=== PATIENT | male | born 1960 | race Caucasian/White ===

== ENCOUNTER → 2024-02-23 14:01 | Outpatient (REF) | payer MEDICARE, SELFPAY | LOC: HWRAD 14:01 | PROVIDERS: ATTENDING PHYSICIAN Family Medicine | DX: R19.00 Intra-abdominal and pelvic swelling, mass and lump, unspecified site (principal) | CPT/HCPCS: 76604 ==

== ENCOUNTER → 2024-03-15 14:27 | Outpatient (REF) | payer MEDICARE, SELFPAY | LOC: HWRAD 14:27 | PROVIDERS: ATTENDING PHYSICIAN Family Medicine | DX: R29.898 Other symptoms and signs involving the musculoskeletal system (principal) | CPT/HCPCS: 71120 ==

== ENCOUNTER 2024-04-03 09:43 | Emergency (ER) | payer MEDICARE, SELFPAY ==
[2024-04-03 09:51] VITALS: BP 139/80
[2024-04-03 10:22] LABS: Urine Albumin Negative (Neg - Trace); Urine Bilirubin Negative (Negative); Urine Character Clear (Clear); Urine Color Yellow; Urine Glucose 2+ (Negative); Urine Ketone Negative (Negative); Urine Leukocyte Negative (Negative); Urine Nitrite Negative (Negative); Urine Occult Blood 4+ (Negative); Urine Urobilinogen Negative (Neg - 1+)
[2024-04-03 10:35] LABS: Urine Bacteria Few (Negative); Urine Red Blood Cell 16-20 /HPF (0-2)
--- NOTE | 2024-04-03 10:35 | ED.GENMED ---
History of Present Illness
General
Chief Complaint: Flank Pain
Time Seen by Provider: 04/03/24 10:09
History of Present Illness
History of Present Illness:
63-year-old male with history of CAD status post CABG, hypertension, diabetes presenting to the emergency department for right-sided flank pain with radiation to the right lower quadrant. Patient notes symptoms started acutely yesterday morning.
He woke up with right flank pain and when he urinated, had hematuria. Pain has since progressed to the right lower quadrant, with urgency and hesitancy. Hematuria has overall improved. However, pain is still persistent. Notes history of a kidney
stone about 20 years ago and pain feels very similar. He was able to pass the kidney stone at that time. He denies dysuria or fever. He denies chest pain or difficulty breathing. He denies any significant abdominal surgeries
Past History
Past History
ED Past Medical History: HTN, Hypercholesterolemia, NIDDM and Other (OA)
Social History
Tobacco: Non-smoker
Phy Exam
Physical Exam
Physical Exam:
General: Well-appearing, no clinical signs of dehydration, nontoxic and in no acute distress
HEENT: protecting airway
Neck: appears supple
CV: Normal heart rate, regular rhythm, no evidence of cyanosis
Resp: No accessory muscle use, no increased work of breathing, lungs clear to auscultation bilaterally
Abd: Soft and non-distended, no tenderness to palpation, normal bowel sounds. No CVA tenderness
Extremities: No deformities, no swelling, no erythema, pulses and sensation intact
Neuro: alert, no focal neurologic deficit
: deferred
Rectal: deferred
Psych: Normal affect
Skin: Intact
Course
Orders/Labs/Results
Orders:
Orders
04/03/24 10:11
Urinalysis Reflex To Culture Urgent
Date Specimen was Collected: 04/03/24
Time Specimen was Collected: 10:08
Urine Microscopic Reflex Cult Urgent
04/03/24 10:32
0.9% Sodium Chloride 1000 ml [Nss] 1,000 ml IV BOLUS
Ketorolac [Toradol] 15 mg IV NOW STA
04/03/24 10:33
CT Abd/pel Without Iv Or Oral Urgent
Comment:
Reason For Exam: R-flank to RLQ pain, kidney stone
04/03/24 10:36
Complete Blood Count/With Diff Urgent
Comprehensive Metabolic Panel Urgent
Abnormal Lab Results
04/03/24 04/03/24
10:11 10:36
RBC 4.12 L 10^6/uL
(4.70-6.10)
Hgb 12.4 L g/dL
(13.0-18.0)
Hct 34.0 L %
(39.0-52.0)
Immature Gran % 0.6 H %
(0-0.5)
Lymphocytes % 18.6 L %
(20.5-51.1)
BUN 22 H mg/dl
(9-20)
Glucose 171 H mg/dl
(70-99)
Ur Occult Blood Reflex 4+ A
(Negative)
Urine RBC 16-20 A /HPF
(0-2)
Urine Bacteria (Reflex) Few A
(Negative)
Urine Glucose 2+ A
(Negative)
04/03/24 10:36
04/03/24 10:36
Vital Signs
Initial and Last Documented VS:
Initial Vital Signs
Temp Pulse Resp BP Pulse Ox
98.4 F 80 17 139/80 99
04/03/24 09:51 04/03/24 09:51 04/03/24 09:51 04/03/24 09:51 04/03/24 09:51
Last Documented Vital Signs
Temp Pulse Resp BP Pulse Ox
98.4 F 80 17 139/80 99
04/03/24 09:51 04/03/24 09:51 04/03/24 09:51 04/03/24 09:51 04/03/24 09:51
MDM/Problems Addressed
MDM/Problems Addressed:
63-year-old male with history of CAD status post CABG, hypertension, diabetes presenting with 2 days of right flank pain with radiation to right lower quadrant. Vital signs are normal.
On exam, patient nontoxic, no acute distress, slightly uncomfortable secondary to pain. Overall benign examination without tenderness to the abdomen, no CVA tenderness. Symptom presentation however seems most consistent with
nephrolithiasis/ureterolithiasis, particularly given history of similar episode in the past. For this reason will obtain laboratory analysis and CT imaging. Will treat patient with IV fluids and Toradol and reassess for improvement.
11:45 -patient's pain is much improved after Toradol. Labs are unremarkable without leukocytosis. Normal renal function. No signs of urinary tract infection. CT does show a 2 mm stone with mild hydro-, at UVJ. Given size, suspect patient will
pass the stone on his own. No concern for infected stone at this time. Feel patient can be managed appropriately at home with outpatient urology follow-up. Will prescribe pain medication. Advised ibuprofen for breakthrough pain. Return
precautions discussed and patient standing.
*Critical Care Note
Total Time (30-74mins, 75-104mins- exclusive of procedures): Not Applicable
ED Attending Note
-
Portions of this chart may have been created with voice recognition software.� Occasional wrong word or��sound alike� substitutions may have occurred due to the inherent limitations of voice recognition software.
Discharge Plan
Departure
Prescriptions:
No Action
multivitamin Tablet
1 tab PO DAILY
glipizide 10 mg Tablet Extended Release 24hr
20 mg PO DAILY
lisinopril 20 mg Tablet
20 mg PO DAILY
Hold Instructions: until seen by cardiology
Rx Instructions:
Never took Nitroglycerin
metformin 1,000 mg Tablet
1,000 mg PO BID
nitroglycerin 0.4 mg Tablet, Sublingual
0.4 mg SUBLINGUAL Q5-15M PRN (Reason: chest pain)
fenofibrate 160 mg Tablet
160 mg PO DAILY
amlodipine 2.5 mg Tablet
2.5 mg PO DAILY
aspirin 81 mg Tablet,Delayed Release (Dr/Ec)
81 mg PO DAILY
atorvastatin 40 mg tablet
40 mg PO DAILY
(DME) Contour Next Test Strips Strip
Qty: 60 0RF
Rx Instructions:
Pt testing twice a day
(DME) lancets [Microlet Lancet] Misc
Qty: 60 0RF
Rx Instructions:
Pt testing 2 times a day
acetaminophen 325 mg Tablet
650 mg PO Q4HPRN PRN (Reason: mild pain,headache,temp >101F ) Qty: 0 0RF
clopidogrel 75 mg Tablet
75 mg PO DAILY Qty: 30 1RF
aspirin 81 mg Tablet,Chewable
81 mg PO DAILY Qty: 0 0RF
Farxiga 10 mg Tablet
10 mg PO DAILY Qty: 30 2RF
amiodarone [Pacerone] 200 mg Tablet
200 mg PO TID Qty: 60 0RF
Rx Instructions:
take one tablet three times a day for one week, then take one tablet twice a day until seen by cardiology
metoprolol succinate 25 mg Tablet Extended Release 24 Hr
75 mg PO DAILY Qty: 90 2RF
hydrocodone-acetaminophen 5-325 mg tablet
1 tab PO Q6H PRN (Reason: Pain) Qty: 20 0RF
Rx Instructions:
do not take tylenol with this medication, you may take one or the other
Referrals:
Farhad Spears DO [Family Provider] -
Interventions
Interventions:
*Risk Screen - Suicide Last Done: 04/03/24 11:44
*Neglect/Abuse Screening Last Done: 04/03/24 11:44
EJ-Kweqdp-Goigsmetzo Assessment Last Done: 04/03/24 11:43
ED-Male Genitourinary Assessment Last Done: 04/03/24 11:43
Discharge Date and Time
Print Language: ROMANSH
[2024-04-03 10:48] LABS: % Basophils 0.6 % (0-2); % Eosinophils 1.4 % (0-6); % Immature Granulocytes 0.6 % (0-0.5); % Lymphocytes 18.6 % (20.5-51.1); % Monocytes 6.6 % (1.7-9.3); % Neutrophils 72.2 % (42.2-75.2); Absolute Eosinophils 0.1 10^3/uL (0-0.7); Absolute Lymphocytes 1.2 10^3/uL (1.2-3.4); Absolute Monocytes 0.4 10^3/uL (0.1-0.6); Absolute Neutrophils 4.8 10^3/uL (1.4-6.5); Hemoglobin 12.4 g/dL (13.0-18.0); Mean Corp Hgb Conc. 36.5 g/dL (33.0-37.0); Mean Corpuscular Hgb 30.1 pg (27.0-31.0); Mean Corpuscular Volume 82.5 fL (80.0-94.0); Mean Platelet Volume 9.2 fL (7.4-10.4); Nucleated Red Blood Cells % 0 % (-); Platelet Count 177 10^3/uL (130-400); Red Blood Cell Count 4.12 10^6/uL (4.70-6.10); Red Cell Dist. Width 12.9 % (11.5-14.5); White Blood Cell Count 6.6 10^3/uL (4.8-10.8)
[2024-04-03] MEDS: NSS 1000 IV (10:53)
[2024-04-03] MEDS: TORADOL 15 MG IV (10:53)
[2024-04-03 10:59] LABS: ALT (SGPT) 23 U/L (0-50); AST (SGOT) 28 U/L (17-59); Albumin 4.3 g/dl (3.5-5.0); Alkaline Phosphatase 68 U/L (38-126); Blood Urea Nitrogen 22 mg/dl (9-20); Calcium 9.6 mg/dl (8.4-10.2); Carbon Dioxide 23 mmol/L (22-30); Chloride 107 mmol/L (98-107); Glucose 171 mg/dl (70-99); Sodium 138 mmol/L (135-145); Total Bilirubin 0.7 mg/dl (0.2-1.3); Total Protein 6.8 g/dl (6.3-8.2); eGFR > 60.00
[2024-04-03 12:04] VITALS: BP 129/78
== END 2024-04-03 12:06 | disposition home or self-care (01) ==
LOC: EMR 09:43
PROVIDERS: EMERGENCY PHYSICIAN Student in an Organized Health Care Education/Training Program; FAMILY PHYSICIAN Family Medicine
DX: N13.2 Hydronephrosis with renal and ureteral calculous obstruction (principal); I10 Essential (primary) hypertension; I25.10 Atherosclerotic heart disease of native coronary artery without angina pectoris; E11.9 Type 2 diabetes mellitus without complications
CPT/HCPCS: 99284; 96374; 96361; 74176; 80053; 81003; 81015; 85025

== ENCOUNTER → 2024-04-25 06:49 | Outpatient (REF) | payer MEDICARE, SELFPAY | LOC: RAD 06:49 | PROVIDERS: ATTENDING PHYSICIAN Family Medicine | DX: Z87.891 Personal history of nicotine dependence (principal); Z13.6 Encounter for screening for cardiovascular disorders | CPT/HCPCS: 76770 ==

== ENCOUNTER → 2024-12-22 09:51 | Outpatient (REF) | payer MEDICARE, SELFPAY | LOC: HWRAD 09:51 | PROVIDERS: ATTENDING PHYSICIAN Family Medicine | DX: M79.674 Pain in right toe(s) (principal) | CPT/HCPCS: 73630 ==

== ENCOUNTER → 2025-09-11 14:02 | Outpatient (REF) | payer MEDICARE, SELFPAY | LOC: HWRAD 14:02 | PROVIDERS: ATTENDING PHYSICIAN Family Medicine; FAMILY PHYSICIAN Family Medicine | DX: R31.9 Hematuria, unspecified (principal) | CPT/HCPCS: 74176 ==

== ENCOUNTER 2025-09-12 08:52 | Emergency (ER) | payer MEDICARE, SELFPAY ==
[2025-09-12 08:56] VITALS: BP 156/87
[2025-09-12 09:21] LABS: Hematocrit 40.6 % (39.0-52.0); Hemoglobin 14.2 g/dL (13.0-18.0); Mean Corp Hgb Conc. 35.0 g/dL (33.0-37.0); Mean Corpuscular Volume 83.2 fL (80.0-94.0); Nucleated Red Blood Cells % 0 % (-); Platelet Count 196 10^3/uL (130-400); Red Cell Dist. Width 12.5 % (11.5-14.5)
[2025-09-12 09:33] LABS: Urine Character Cloudy (Clear)
[2025-09-12 09:36] LABS: ALT (SGPT) 39 U/L (0-50); AST (SGOT) 37 U/L (17-59); Albumin 5.0 g/dl (3.5-5.0); Alkaline Phosphatase 78 U/L (38-126); Blood Urea Nitrogen 14 mg/dl (9-20); Calcium 9.4 mg/dl (8.4-10.2); Carbon Dioxide 23 mmol/L (22-30); Chloride 107 mmol/L (98-107); Glucose 126 mg/dl (70-99); Potassium 3.7 mmol/L (3.5-5.1); Sodium 140 mmol/L (135-145); Total Protein 8.0 g/dl (6.3-8.2); eGFR > 60.00
[2025-09-12 11:16] LABS: Urine Squamous Cell 0-2 /LPF (Few)
[2025-09-12 11:17] LABS: Urine Red Blood Cell >100 /HPF (0-2)
[2025-09-12 11:19] VITALS: BP 148/83
--- NOTE | 2025-09-12 11:44 | ED.GENMED ---
History of Present Illness
General
Chief Complaint: Flank Pain
Source: patient
Time Seen by Provider: 09/12/25 11:22
History of Present Illness
History of Present Illness:
64-year-old male with past medical history of CAD, hypertension, hyperlipidemia, abt-[id number] diabetes presents to the ER for evaluation of right sided flank pain that began earlier this morning but patient notes that for the last couple
weeks he has had intermittent hematuria but without much pain. Patient went to his primary care provider and had a urinalysis completed which showed the blood in the urine but no reports of infection. He had a outpatient CT scan done yesterday,
notes that 2 kidney stones were found as well as some other incidental findings. Patient did not take anything for the pain prior to arrival. He did note some nausea earlier secondary to the pain but that this has resolved. He denies any fevers,
chills, rigors, urinary frequency/urgency or dysuria. No history of similar.
Past History
Past History
ED Past Medical History: CAD, HTN, Hypercholesterolemia, NIDDM and Other (OA)
ED Past Surgical History: Cardiac and Orthopedic
Social History
Tobacco: Non-smoker
Alcohol: Occasional
Drug: None
Personal:
Living: with family
Employment: Employed
Review of Systems
Review of Systems
All Other Systems: ROS reviewed and negative except as documented in HPI and ROS
Phy Exam
Physical Exam
Physical Exam:
GENERAL: Alert , in no apparent distress
EYE: clear conjunctiva b/l
HEAD: NCAT
ENT: o/p clr, mmm.
CARDIAC: Regular rate and rhythm .
LUNGS: Clear breath sounds bilaterally, no acute respiratory distress, no wheezes/rales/rhonchi
ABDOMEN: Soft, no r/g, right CVA tenderness
NEUROLOGICAL: Alert and oriented
SKIN: Warm and dry, skin intact.
MUSCULOSKELETAL: well perfused.
PSYCH: Normal and appropriate interaction.
Scores
Heart Failure Risk
Heart Failure Risk Score: Not Applicable
Heart Score for Chest Pain Patients
STEMI patient?: Not applicable
Withdrawal Assessment of Alcohol
Withdrawal Assessment Completed?: Not applicable
Course
Orders/Labs/Results
Orders:
Orders
09/12/25 09:12
Complete Blood Count/With Diff Urgent
Comprehensive Metabolic Panel Urgent
UA Reflex to Culture [Urinalysis Reflex To Culture] Urgent
Date Specimen was Collected: 09/12/25
Time Specimen was Collected: 09:00
Urine Microscopic Reflex Cult Urgent
Urine Culture Urgent
DARREN Source: U
Specimen Description:
Date Specimen was Collected: 09/12/25
Time Specimen was Collected: 09:00
09/12/25 11:33
0.9% Sodium Chloride 1000 ml [Nss] 1,000 ml IV BOLUS
Ketorolac [Toradol] 30 mg IV NOW STA
Abnormal Lab Results
09/12/25
09:12
Abs Immat Gran (auto) 0.1 H 10^3/uL
(0-0.05)
Absolute Neuts (auto) 7.1 H 10^3/uL
(1.4-6.5)
Lymphocytes % 17.1 L %
(20.5-51.1)
Glucose 126 H mg/dl
(70-99)
Urine Ketones 1+ A
(Negative)
Ur Occult Blood Reflex 4+ A
(Negative)
Leukocyte Esterase Rfl 1+ A
(Negative)
Urine RBC >100 A /HPF
(0-2)
Urine Bacteria (Reflex) Few A
(Negative)
Urine Albumin (Reflex) 3+ A
(Neg - Trace)
09/12/25 09:12
09/12/25 09:12
Vital Signs
Initial and Last Documented VS:
Initial Vital Signs
Temp Pulse Resp BP Pulse Ox
97.5 F 94 20 156/87 100
09/12/25 08:56 09/12/25 08:56 09/12/25 08:56 09/12/25 08:56 09/12/25 08:56
Last Documented Vital Signs
Temp Pulse Resp BP Pulse Ox
97.5 F 68 20 143/79 99
09/12/25 08:56 09/12/25 11:51 09/12/25 08:56 09/12/25 11:51 09/12/25 11:51
MDM/Problems Addressed
Differential Diagnosis Includes:
Known ureterolithiasis
UTI/pyelo
Muscular back pain
MDM/Problems Addressed:
64-year-old male presenting to the ER for evaluation of right-sided flank pain. He had hematuria over the last week or 2. Patient CT with findings noted from yesterday include
IMPRESSION:
1. Mild right hydronephrosis secondary to two 4 mm calculi within the proximal right ureter as above. No calculi identified within the bilateral kidneys.
2. Hepatic fatty infiltration.
3. Prostatomegaly. Mild urinary bladder wall thickening, question outlet obstruction.
There was also a noted pulmonary nodule in the left lower lobe that patient was notified about. He will follow-up as an outpatient for this.
Based off of patient's CT findings I do suspect his pain is related directly to the ureterolithiasis. Given their size they should be able to pass on their own. There is no sign of infection presently. Will treat pain with Toradol and fluids.
Anticipate discharge home with outpatient follow-up. Will be starting patient on Flomax as well due to the prostatomegaly and the ureteral stones.
*Radiology
Radiology exam reviewed: radiology read reviewed
*Pulse Oximetry
SaO2: 99
Oxygen Mode of Delivery: Room air
Patient hypoxic: no
*Critical Care Note
Total Time (30-74mins, 75-104mins- exclusive of procedures): Not Applicable
Patient Management
Escalation/DeEscalation of care consider admission/obs:
Patient noting near full resolution of pain following medications. Feels comfortable being discharged home. Prescriptions for Percocet, Flomax and naproxen sent to pharmacy. Patient to follow-up with urology. Aware of return precautions to the
ER.
ED Attending Note
-
Portions of this chart may have been created with voice recognition software.� Occasional wrong word or��sound alike� substitutions may have occurred due to the inherent limitations of voice recognition software.
Discharge Plan
Departure
Patient Disposition: Home (Routine Discharge)
Date of Disposition: 09/12/25
Time of Disposition: 12:55
Patient with high blood pressure during this ER visit?: Yes
Discharge Problem:
Ureterolithiasis
Instructions: Kidney Stones (DC)
Prescriptions:
New
oxycodone-acetaminophen [Percocet] 5-325 mg tablet
1 tab PO Q6HPRN PRN (Reason: pain) Qty: 10 0RF
tamsulosin 0.4 mg capsule
0.4 mg PO DAILY Qty: 10 0RF
naproxen 500 mg tablet
500 mg PO BID PRN (Reason: Pain) Qty: 10 0RF
No Action
multivitamin Tablet
1 tab PO DAILY
glipizide 10 mg Tablet Extended Release 24hr
20 mg PO DAILY
lisinopril 20 mg Tablet
20 mg PO DAILY
Rx Instructions:
Never took Nitroglycerin
metformin 1,000 mg Tablet
1,000 mg PO BID
nitroglycerin 0.4 mg Tablet, Sublingual
0.4 mg SUBLINGUAL Q5-15M PRN (Reason: chest pain)
fenofibrate 160 mg Tablet
160 mg PO DAILY
amlodipine 2.5 mg Tablet
2.5 mg PO DAILY
aspirin 81 mg Tablet,Delayed Release (Dr/Ec)
81 mg PO DAILY
atorvastatin 40 mg tablet
40 mg PO DAILY
(DME) Contour Next Test Strips Strip
Qty: 60 0RF
Rx Instructions:
Pt testing twice a day
(DME) lancets [Microlet Lancet] Misc
Qty: 60 0RF
Rx Instructions:
Pt testing 2 times a day
acetaminophen 325 mg Tablet
650 mg PO Q4HPRN PRN (Reason: mild pain,headache,temp >101F ) Qty: 0 0RF
clopidogrel 75 mg Tablet
75 mg PO DAILY Qty: 30 1RF
aspirin 81 mg Tablet,Chewable
81 mg PO DAILY Qty: 0 0RF
Farxiga 10 mg Tablet
10 mg PO DAILY Qty: 30 2RF
amiodarone [Pacerone] 200 mg Tablet
200 mg PO TID Qty: 60 0RF
Rx Instructions:
take one tablet three times a day for one week, then take one tablet twice a day until seen by cardiology
metoprolol succinate 25 mg Tablet Extended Release 24 Hr
75 mg PO DAILY Qty: 90 2RF
hydrocodone-acetaminophen 5-325 mg tablet
1 tab PO Q6H PRN (Reason: Pain) Qty: 20 0RF
Rx Instructions:
do not take tylenol with this medication, you may take one or the other
oxycodone-acetaminophen [Endocet] 5-325 mg tablet
1 tab PO Q8H PRN (Reason: Pain) Qty: 9 0RF
oxycodone-acetaminophen [Endocet] 5-325 mg tablet
1 tab PO Q8H PRN (Reason: Pain) Qty: 9 0RF
Referrals:
Farhad Spears DO [Family Provider, Family Practice]
Interventions
Interventions:
*General Assessment Last Done: 09/12/25 11:22
*Neglect/Abuse Screening Last Done: 09/12/25 11:22
*ED COVID-19 Vaccine History Last Done: 09/12/25 11:22
*ED Influenza Vaccine History Last Done: 09/12/25 11:22
[facility] Risk Assessment Tool Last Done: 09/12/25 11:22
*Risk Screen - Suicide (C-SSRS) Last Done: 09/12/25 08:56
*Nursing Disposition Last Done: 09/12/25 13:09
KX-Vvzyut-Emyqmydnnq Assessment Last Done: 09/12/25 11:22
ED-Male Genitourinary Assessment Last Done: 09/12/25 11:22
Discharge Date and Time
Discharge Date/Time: 09/12/25 13:09
Print Language: CITIZEN OF [place]
[2025-09-12] MEDS: TORADOL 30 MG IV (11:48)
[2025-09-12] MEDS: NSS 1000 IV (11:48)
[2025-09-12 11:51] VITALS: BP 143/79
== END 2025-09-12 13:09 | disposition home or self-care (01) ==
LOC: EMR 08:52
PROVIDERS: Student in an Organized Health Care Education/Training Program; EMERGENCY PHYSICIAN Emergency Medicine; FAMILY PHYSICIAN Family Medicine
DX: N13.2 Hydronephrosis with renal and ureteral calculous obstruction (principal); N40.0 Benign prostatic hyperplasia without lower urinary tract symptoms; K76.0 Fatty (change of) liver, not elsewhere classified; R91.1 Solitary pulmonary nodule; E11.9 Type 2 diabetes mellitus without complications; I25.10 Atherosclerotic heart disease of native coronary artery without angina pectoris; I10 Essential (primary) hypertension; E78.00 Pure hypercholesterolemia, unspecified; M19.90 Unspecified osteoarthritis, unspecified site; Z79.84 Long term (current) use of oral hypoglycemic drugs; Z79.82 Long term (current) use of aspirin; Z79.02 Long term (current) use of antithrombotics/antiplatelets
CPT/HCPCS: 99284; 96374; 96361; 80053; 81003; 81015; 85025; 87086

== ENCOUNTER → 2025-09-15 12:14 | Outpatient (REF) | payer MEDICARE, SELFPAY | LOC: RAD 12:14 | PROVIDERS: ATTENDING PHYSICIAN Specialist; FAMILY PHYSICIAN Family Medicine | DX: N20.1 Calculus of ureter (principal) | CPT/HCPCS: 74018 ==

== ENCOUNTER → 2025-09-18 07:22 | Outpatient (REF) | payer MEDICARE, SELFPAY | LOC: DHSLP 07:22 | PROVIDERS: ATTENDING PHYSICIAN Internal Medicine Critical Care Medicine; FAMILY PHYSICIAN Family Medicine | DX: G47.33 Obstructive sleep apnea (adult) (pediatric) (principal) | CPT/HCPCS: 95800 ==